=== PATIENT | female | born 1965 | race Caucasian/White ===

== ENCOUNTER 2018-09-20 14:45 | Emergency (ER) | payer MEDICAID ==
[~2018-09-20] VITALS: Ht 165.1 cm; Wt 78.1 kg
[2018-09-20 15:15] VITALS: Ht 165.1 cm; Wt 78.1 kg
[2018-09-20] MEDS ORDERED: ACETAMINOPHEN 500 MG TAB PO STA (16:35)
[2018-09-20] MEDS ORDERED: ACET500C5 PO (16:36)
[2018-09-20] MEDS ORDERED: SULF1TAB31 PO (16:36)
[2018-09-20] MEDS ORDERED: CEPH-443 PO (16:36)
--- NOTE | 2018-09-20 16:50 | ERD ---
ER Documentation Chief Complaint Chief Complaint redness and pain-possible insect bite HPI This is a 53-year-old female presents ED with complaints of redness on abdomen times 5 days. Patient states that she believes she was bit by about 5 days ago and she is started to notice increasing redness along this area. Admits to tenderness, warmth and pain. Denies any purulent drainage coming from area. Denies fever, chills, chest pain, shortness breath, trouble breathing, abdominal pain and all other symptoms. No known drug allergies. Immunizations up-to-date. Denies any history of IV drug abuse. Denies tobacco use and alcohol use. ROS All systems reviewed and are negative except as per history of present illness. Medications Home Meds Active Scripts Acetaminophen* (Tylophen*) 500 Mg Capsule, 1 CAP PO Q6H PRN for PAIN AND OR ELEVATED TEMP, #20 CAP Prov:YAN VELÁSQUEZ PA-C 09/20/18 Cephalexin* (Keflex*) 500 Mg Capsule, 500 MG PO QID for 10 Days, CAP Prov:YAN VELÁSQUEZ PA-C 09/20/18 Sulfamethoxazole/Trimethoprim* (Bactrim Ds* Tablet) 1 Each Tablet, 1 TAB PO BID, #14 TAB Prov:YAN VELÁSQUEZ PA-C 09/20/18 Allergies Allergies: Coded Allergies: No Known Allergy (Unverified , 09/20/18) PMhx/Soc Medical and Surgical Hx: pt denies Medical Hx, pt denies Surgical Hx Hx Alcohol Use: No Hx Substance Use: No Hx Tobacco Use: No FmHx Family History: No diabetes Physical Exam Vitals Vital Signs Date Temp Pulse Resp B/P (MAP) Pulse Ox O2 O2 Flow FiO2 Time Delivery Rate 09/20/18 98.9 104 18 135/70 98 15:15 (91) Physical Exam Const: No acute distress Head: Atraumatic Eyes: Normal Conjunctiva ENT: Normal External Ears, Nose and Mouth. Neck: Full range of motion. No meningismus. Resp: Clear to auscultation bilaterally Cardio: Regular rate and rhythm, no murmurs Skin: There is a area of redness along abdomen roughly the size of my hand on patient's right abdomen, there is increased warmth, tenderness palpation and induration, there is no fluctuant mass palpated, no purulent drainage expressed from area, no lymphatic streaking Neur: Awake and alert Psych: Normal Mood and Affect Results 24 hrs Current Medications Medications Dose Sig/Tyrone Start Time Status Last (Trade) Ordered Route PRN Stop Time Admin Dose Reason Admin 1 tab ONCE ONCE 09/20/18 Trimethoprim/ PO 17:00 09/20/18 17:01 Sulfamethoxaz ole (Bactrim (Ds)) Cephalexin 500 mg ONCE ONCE 09/20/18 (Keflex) PO 17:00 09/20/18 17:01 1,000 mg ONCE STAT 09/20/18 DC Acetaminophen PO 16:35 (Tylenol 09/20/18 16:36 Tab) Procedures/MDM ER COURSE: The patient was given Tylenol, Keflex, Bactrim The medication was well tolerated and the patient reports improvement in symptoms. The patient was stable throughout ED course. I kept the patient and/or family informed of laboratory and diagnostic imaging results throughout the emergency room course. The patient was promptly evaluated and a treatment plan was devised based on H&P and other data. This plan was discussed with the patient who agreed and had no further questions or concerns prior to discharge. MEDICAL DECISION MAKIN-year-old female presents ED with cellulitis along right abdomen. This appears to be a bug bite that got infected. This is likely cellutlitis given history and presentation. There is no lymphatic streaking. There is no fluc tuant mass or abscess to be drained. Low suspicion for deep space infection, compartment syndrome, abscess, sepsis, neurovascular injury, tendon injury. Patient's vitals are stable and pt can be managed with close outpatient follow- up. Patient was advised to return to the emergency department in 24-48 hours to have wound checked. Advised patient follow-up with primary care in the next 48 hours. Advised to return to ED with any worsening symptoms. DISPOSITION PLAN: We discussed follow up with the patient's primary care doctor within 24 to 48 hours. Patient counseled regarding my diagnostic impression and care plan. Prior to discharge all questions answered. Pt agrees with treatment plan and understands strict return precautions. Precautionary instructions provided including instructions to return to the ER if not improving or for any worsening or changing symptoms or concerns. SPECIALIST FOLLOW UP RECOMMENDED: None Patient has been advised to follow up with primary care in 1-2 days. Disclaimer: Inadvertent spelling and grammatical errors are likely due to EHR/dictation software use and do not reflect on the overall quality of patient care. Also, please note that the electronic time recorded on this note does not necessarily reflect the actual time of the patient encounter. Blood Pressure Assessment: Patient's blood pressure was elevated (>120/80) but appears stable without evidence of hypertension emergency or urgency. The patient was counseled about the risks of hypertension and urged to pursue out patient monitoring and therapy within a week with their primary care physician. Departure Diagnosis: Primary Impression: Cellulitis of right abdominal wall Condition: Stable Patient Instructions: Cellulitis Referrals: [facility] YOU HAVE RECEIVED A MEDICAL SCREENING EXAM AND THE RESULTS INDICATE THAT YOU DO NOT HAVE A CONDITION THAT REQUIRES URGENT TREATMENT IN THE EMERGENCY DEPARTMENT. FURTHER EVALUATION AND TREATMENT OF YOUR CONDITION CAN WAIT UNTIL YOU ARE SEEN IN YOUR DOCTORS OFFICE WITHIN THE NEXT 1-2 DAYS. IT IS YOUR RESPONSIBILITY TO MAKE AN APPOINTMENT FOR FOLOW-UP CARE. IF YOU HAVE A PRIMARY DOCTOR --you should call your primary doctor and schedule an appointment IF YOU DO NOT HAVE A PRIMARY DOCTOR YOU CAN CALL OUR PHYSICIAN REFERRAL HOTLINE AT IF YOU CAN NOT AFFORD TO SEE A PHYSICIAN YOU CAN CHOSE FROM THE FOLLOWING [facility] [address] [facility] [facility] [address] [facility] [facility] [address] [facility] [facility] [address] [facility]. [facility] [address] [facility] [facility]. [address] Additional Instructions: Return in 24-48 hours for wound check. Patient advised to return to the ED immediately for new or worsening symptoms. Patient advised to follow up with primary care provider in the next 24-48 hours. Patient verbalized understanding and agrees with treatment plan and course of action. If patient has no primary care they may follow up with one of the [facility] listed on the following page or one of the options listed below [facility] + [address] [address] or [facility] [address] [place] [address] or [facility] [address] [place] [address] YAN VELÁSQUEZ PA-C Sep 20, 2018 16:50
[2018-09-20] MEDS ORDERED: TRIMETHOPRIM/SULFAMETHOX (DS) TAB PO ONE (17:00)
[2018-09-20] MEDS ORDERED: CEPHALEXIN 500 MG CAP PO ONE (17:00)
== END 2018-09-20 17:40 | disposition home or self-care (01) ==
LOC: FTE 14:45
DX: L03.311 Cellulitis of abdominal wall (principal)
CPT/HCPCS: Z7502; Z7610; 99283

== ENCOUNTER 2018-09-23 16:30 | Emergency (ER) | payer MEDICAID ==
[~2018-09-23] VITALS: Ht 167.6 cm; Wt 76.0 kg
[~2018-09-23 16:30] MED LIST: ACET500C5 PO; CEPH-443 PO; SULF1TAB31 PO
[2018-09-23 16:57] VITALS: BP 136/63; PULSE 77; RESP 18; Ht 167.6 cm; Wt 76.0 kg
--- NOTE | 2018-09-23 18:16 | ERD ---
ER Documentation Chief Complaint Chief Complaint pt is bib family for wound check to abd abscess a few days ago HPI 53-year-old female presents with a history of a right abdominal wall abscess. It was not incised and drained. She is on Bactrim and Keflex. She is here for 3-day wound check. She states that the redness is decreasing and the wound has started to drain. She denies any fevers, vomiting, shortness of breath, chest pain. ROS All systems reviewed and are negative except as per history of present illness. Medications Home Meds Active Scripts Acetaminophen* (Tylophen*) 500 Mg Capsule, 1 CAP PO Q6H PRN for PAIN AND OR ELEVATED TEMP, #20 CAP Prov:YAN VELÁSQUEZ PA-C 09/20/18 Cephalexin* (Keflex*) 500 Mg Capsule, 500 MG PO QID for 10 Days, CAP Prov:YAN VELÁSQUEZ PA-C 09/20/18 Sulfamethoxazole/Trimethoprim* (Bactrim Ds* Tablet) 1 Each Tablet, 1 TAB PO BID, #14 TAB Prov:YAN VELÁSQUEZ PA-C 09/20/18 Allergies Allergies: Coded Allergies: No Known Allergy (Unverified , 09/20/18) PMhx/Soc Hx Alcohol Use: No Hx Substance Use: No Hx Tobacco Use: No Smoking Status: Never smoker FmHx Family History: No diabetes, No coronary disease, No other Physical Exam Vitals Vital Signs Date Temp Pulse Resp B/P (MAP) Pulse Ox O2 O2 Flow FiO2 Time Delivery Rate 09/23/18 98.9 18:37 09/23/18 99.0 77 18 136/63 98 16:57 (87) Physical Exam Const: No acute distress Head: Atraumatic Eyes: Normal Conjunctiva ENT: Normal External Ears, Nose and Mouth. Neck: Full range of motion. No meningismus. Resp: Clear to auscultation bilaterally Cardio: Regular rate and rhythm, no murmurs Abd: Soft, non tender, non distended. Normal bowel sounds Skin: No petechiae or rashes. Right abdominal wall abscess actively draining. There is some erythema which is approximately 6-8 cm but is decreased in size according to patient. Back: No midline or flank tenderness Ext: No cyanosis, or edema Neur: Awake and alert Psych: Normal Mood and Affect Procedures/MDM She presents for recheck on a spontaneously draining abdominal abscess. Since it is actively draining we will defer incision and drainage and by report it is decreasing in size. Will we will redress the wound, discharged home with continuation of warm compresses antibiotics, and recommendations for 3-4-day wound check. She should always return sooner for worsening redness, fevers, new or worsening symptoms. The patient was stable with no new complaints during the ER course. Clinically, there is no current evidence to suggest meningitis, sepsis, acute abdomen, pneumonia, stroke, acute coronary syndrome, pulmonary embolism, aortic dissection or any other emergent condition appearing to require further evaluation or hospitalization. Patient counseled regarding my diagnost ic impression and care plan. Prior to discharge all questions answered. Pt agrees with treatment plan and understands strict return precautions. Pt is instructed to follow up with primary care provider within 24-48 hours. Precautionary instructions provided including instructions to return to the ER if not improving or for any worsening or changing symptoms or concerns. Departure Diagnosis: Primary Impression: Encounter for wound re-check Condition: Stable Patient Instructions: Abscess, Antiobiotic Treatment Only Additional Instructions: Continue warm compresses. Recheck for worsening redness, fevers, new worsening symptoms. Okay to recheck again in 3-4 days JOHN VILLARREAL MD Sep 23, 2018 18:16
== END 2018-09-23 18:38 | disposition home or self-care (01) ==
LOC: FTE 16:30
DX: Z48.01 Encounter for change or removal of surgical wound dressing (principal)
CPT/HCPCS: 99281